=== PATIENT | female | born 1955 | race American Indian/Alaskan Native ===

== ENCOUNTER 2018-09-12 07:14 | Day surgery (SDC) | payer BC ==
[~2018-09-12 07:14] MED LIST: ANCEF/STERILE WATER 2 GM/20 ML IV NR
[2018-09-12] MEDS ORDERED: SUBLIMAZE ONE (09:22)
[2018-09-12] MEDS ORDERED: DIPRIVAN 10 MG/ML IV ONE (09:22)
[2018-09-12] MEDS ORDERED: ZOFRAN IV PRN (09:28)
[2018-09-12] MEDS ORDERED: SUBLIMAZE IV PRN (09:28)
--- NOTE | 2018-09-12 09:29 | Anesthesia Day of Surgery ---
Anesthesia Day of Surgery - Day of Surgery Patient Examined: Yes Patient H&P Reviewed: Yes Patient is NPO: Yes
--- NOTE | 2018-09-12 09:34 | Anesthesia Consultation ---
Anesthesia Consult and Med Hx Date of service: 09/12/18 - Airway Anesthetic Teeth Evaluation: Good, Crowns ROM Head & Neck: Adequate Mental/Hyoid Distance: Adequate Mallampati Class: Class II Intubation Access Assessment: Probably Good - Pre-Operative Health Status ASA Pre-Surgery Classification: ASA2 Proposed Anesthetic Plan: General (ETT) - Pulmonary Hx Smoking: No Hx Sleep Apnea: No (DEYVI PRE SCREEN LOW RISK) - Cardiovascular System Hx Hypertension: Yes (X 20 YRS. Can climb two flights of stairs) Hx Cardia Arrhythmia: No (Palpitations-negative cardiac w/u 3-4 years ago) - Gastrointestinal Hx Gastroesophageal Reflux Disease: Yes (Severe. Supposed to take Zantac BID) - Endocrine Hx Renal Disease: Yes (Stage 3. Stone currently) - Other Systems Hx Cancer: No
[2018-09-12] MEDS ORDERED: PEPCID IV SCH (10:00)
[2018-09-12] MEDS ORDERED: LACTATED RINGERS 1,000 ML IV SCH (10:00)
[2018-09-12] MEDS ORDERED: PROTONIX IV NR (10:00)
[2018-09-12] MEDS ORDERED: NACL 0.9% IR ONE (10:02)
[2018-09-12] MEDS: REGLAN IV NR ×2 (10:32→12:11)
[2018-09-12] MEDS ORDERED: GENTAMICIN/NS 80 MG/100 ML 100 ML IV ONE (11:00)
--- NOTE | 2018-09-12 11:16 | Short Stay Summary ---
Short Stay Documentation Date of service: 09/12/18 - History H&P: obtained from office - Allergies and Medications Current Medications: Allergies lisinopril Allergy (Verified 09/08/18 15:18) Swelling Sulfa (Sulfonamide Antibiotics) Allergy (Verified 09/08/18 15:18) Rash sulfamethoxazole [From Bactrim] Allergy (Verified 09/08/18 15:18) Hives trimethoprim [From Bactrim] Allergy (Verified 09/08/18 15:18) Hives Home Medications Medication Instructions Recorded Confirmed Last Taken Type Amoxicillin [Trimox] 250 mg PO Q8HR 09/08/18 09/08/18 Unknown History Gemfibrozil [Lopid] 600 mg PO BID 09/08/18 09/08/18 Unknown History NIFEdipine [Nifedipine ER] 60 mg PO DAILY 09/08/18 09/08/18 Unknown History Oxycodone HCl/Acetaminophen 1 each PO Q6HR PRN 09/08/18 09/08/18 Unknown History [Percocet 2.5/325 mg] Tamsulosin [Flomax] 0.4 mg PO QDAY 09/08/18 09/08/18 Unknown History Active Medications Cefazolin Sodium (Ancef/Sterile Water 2 Gm/20 Ml) 2 gm IV PREOP NR Stop: 09/12/18 23:59 Famotidine (Pepcid) 20 mg IV PREOP ADAL Fentanyl (Sublimaze) 50 mcg IV Q5MIN PRN PRN Reason: Pain , Severe (7-10) Stop: 09/12/18 20:00 Lactated Ringer's (Lactated Ringers) 1,000 mls @ 125 mls/hr IV DIRECT ADAL Metoclopramide HCl (Reglan) 10 mg IV PREOP NR Stop: 09/12/18 13:00 Ondansetron HCl (Zofran) 4 mg IV ONCE PRN PRN Reason: Nausea And Vomiting Stop: 09/12/18 16:00 - Brief post op/procedure progress note Date of procedure: 09/12/18 Pre-op diagnosis: left ureteral stone Post-op diagnosis: same Procedure: cysto, left ureteroscopy, basket stone extraction stent with external string Surgeon: DECLAN PEARCE Condition: stable - Hospital course Hospital course: stone,cipro,norco,post op info on chart - Disposition Condition at discharge: Stable Disposition: DC-01 TO HOME OR SELFCARE Short Stay Discharge Plan Follow up with: KONRAD MCCORD MD [Primary Care Provider] - 7 Days
--- NOTE | 2018-09-12 12:15 | Fluoroscopy Report ---
FLUOROSCOPY RETROGRADE UROGRAPHY HISTORY: Left ureteral stone FINDINGS: Fluoroscopy was provided by radiology during retrograde urography by the urologist. 8 fluoroscopic im ages are presented. 28 seconds of fluoroscopy time was utilized. The right retrograde pyelogram is normal. Images of the left retrograde pyelogram demonstrate a filling defect in the distal left ureter consis tent with a mildly obstructing stone. Subsequent images demonstrate left ureteroscopy. The stone was visualized and removed with a basket. A left ureteral stent was placed which adequately drains the le ft collecting system. Additional findings: Multiple calcified uterine fibroids are noted in the pelvis. IMPRESSION: Left ureteral stone removal. Left ureteral stent placement. Signer Name: Julius Rawls Jr, MD Signed: 09/12/2018 12:11 PM Workstation Name: [id number]
[2018-09-12 13:01] VITALS: BP 114/69
[2018-09-12] MEDS ORDERED: BLOXIVERZ ONE (14:00)
[2018-09-12] MEDS ORDERED: ROBINUL ONE (14:00)
[2018-09-12] MEDS ORDERED: ZEMURON IV ONE (14:00)
[2018-09-12] MEDS ORDERED: QUELICIN ONE (14:00)
--- NOTE | 2018-09-12 16:26 | Operative Report ---
PREOPERATIVE DIAGNOSIS: Left distal ureteral stone. POSTOPERATIVE DIAGNOSIS: Left distal ureteral stone. PROCEDURE: Cystoscopy, bilateral retrograde pyelograms, left rigid ureteroscopy, basket stone extraction, placement of 6-[place] 24 cm double-J stent with an external string. SURGEON: David Bonilla MD ANESTHESIA: General. ESTIMATED BLOOD LOSS: Minimal. FLUIDS: Crystalloid. COMPLICATIONS: No complications. INDICATIONS: This patient is a 63-year-old female seen in the office after presenting to the Emergency Room at [facility] for left flank pain. CT of abdomen and pelvis revealed a 4 mm distal ureteral stone with hydronephrosis. She also has a 3 mm right-sided stone. Fibroids were noted. We discussed options. She agreed to proceed with surgical intervention. DESCRIPTION OF PROCEDURE: The patient was taken to the operative suite, placed in a supine position. After adequate general anesthesia, she was placed in a dorsal lithotomy position, prepped and draped in a sterile fashion. Pancystourethroscopy was performed with a 22-[place] Storz cystoscope, no acute bladder pathology. Right retrograde pyelogram was obtained with an 8-[place] catheter and 8 mL of contrast. No filling defects or obstruction on the left side just as I was inserting it, there was a little blood that came from the ureter. Retrograde pyelogram was obtained. A gentle retrograde only filled the distal third of the ureter, I could see a filling defect. At that point, I put two 0.035 Glidewire in the ureter and bloody urine could be appreciated. She got Ancef 2 grams preop, added 80 mg of gentamicin as well and sent a urine culture. She was afebrile on preop. Rigid ureteroscopy looked right inside the ureter approximately 1 cm. There was appeared to be a 4-5 mm stone. This was engaged with a 3-[place] Dyan basket and extracted without difficulty. I did not manipulate the ureter anymore and placed a 6-[place] 24 cm double-J stent with an external string. Bladder was drained. She was extubated and taken to recovery room in stable condition. Her stent was confirmed on fluoroscopy. She will go home on [place] and [place]. JOB# [id number] [facility]
--- NOTE | 2018-09-12 16:59 | Post Anesthesia Evaluation ---
- Post Anesthesia Evaluation Patient Participated: Yes Airway Patent: Yes Stable Respiratory Function: Yes Nausea/Vomiting: No Temp > 96.8F: Yes Pain Manageable: Yes Adequeate Hydration: Yes Anesthesia Complications: No
== END 2018-09-12 07:15 | disposition home or self-care (01) ==
LOC: OR 07:14
PROVIDERS: ATTEND Urology
DX: N20.1 Calculus of ureter (principal); E78.00 Pure hypercholesterolemia, unspecified; K21.9 Gastro-esophageal reflux disease without esophagitis; I12.9 Hypertensive chronic kidney disease with stage 1 through stage 4 chronic kidney disease, or unspecified chronic kidney disease; N18.3 Chronic kidney disease, stage 3 (moderate); Z87.440 Personal history of urinary (tract) infections; Z98.890 Other specified postprocedural states; Z88.2 Allergy status to sulfonamides; Z88.8 Allergy status to other drugs, medicaments and biological substances; Z98.891 History of uterine scar from previous surgery
CPT/HCPCS: 52332; 52352; 74420; 87086; C1758; C1769; C2617; C9113; J0330; J0690; J1580; J2405; J2704; J2710; J2765; J3010; J7120; Q9967